=== PATIENT | male | born 1970 ===

== ENCOUNTER 2024-12-18 07:41 | Inpatient (IN) | payer OTHER ==
[~2024-12-18] VITALS: Ht 152.4 cm; Wt 0.9 kg
[2024-12-18 08:36] LABS: HEMATOCRIT 43.1 % (39.0-48.0); HEMOGLOBIN 14.6 g/dL (13-16.00); MEAN CELL VOLUME 90.7 fL (80.0-100.00); MEAN CORPUSCULAR HEMOGLOBIN 30.7 pg (27.00-32.0); MEAN CORPUSCULAR HGB CONC 33.9 g/dl (32.0-36.0); PLATELET COUNT 213 K/uL (150-450); RED BLOOD COUNT 4.76 M/uL (4.00-6.00); RED CELL DISTRIBUTION WIDTH 14.7 % (11.5-14.5)
[2024-12-18 08:43] LABS: PH,URINE 5.5 (5.0-8.0); URINE APPEARANCE Clear; URINE BILIRRUBIN Negative (NEGATIVE); URINE BLOOD Small; URINE COLOR Dark Yellow; URINE GLUCOSE Negative (NEGATIVE); URINE KETONE Trace (NEGATIVE); URINE LEUKOCYTE Negative; URINE NITRATE Negative; URINE PROTEIN 30 (NEGATIVE)
[2024-12-18 08:48] LABS: URINE EPITHELIAL CELLS 5.6 uL (0.0-38.8); URINE RBC 51.7 uL (0.0-20.8); URINE WBC 2.5 uL (0.0-23.2)
[2024-12-18 08:57] LABS: PARTIAL THROMBOPLASTIN TIME 27.2 SECONDS (22.0-34.0); PROTHROMBIN TIME 10.9 SECONDS (9.0-11.5)
[2024-12-18] MEDS ORDERED: MOUNJARO5 MG/0.5 M (09:01)
[2024-12-18] MEDS ORDERED: METFORMIN HCL500 M3 PO (09:02)
[2024-12-18] MEDS ORDERED: SIMVASTATIN80 MG (09:02)
[2024-12-18] MEDS ORDERED: PRILOSEC OTC20 MG PO (09:03)
[2024-12-18] MEDS ORDERED: AMOX-CLAV 875-1 EACH PO (09:04)
[2024-12-18] MEDS ORDERED: PANTOPRAZOLE SO40 MG (09:04)
[2024-12-18 09:08] LABS: URINE BACTERIA 2.4 uL (0.0-1933); URINE CAST 0.14 uL (0.0-1.40)
[2024-12-18] MEDS ORDERED: LOPRESSOR25 MG (09:08)
[2024-12-18 09:09] VITALS: BP 121/80
[2024-12-18 10:13] LABS: BILIRUBIN TOTAL 0.44 mg/dL (0.3-1.2); CALCIUM 9.5 mg/dL (8.5-10.1); CREATININE SERUM 0.73 mg/dL (0.70-1.30); GFR 111.55; GLOBULINA 3.3 G/DL (2.4-3.5); POTASSIUM 5.19 mEq/L (3.5-5.1); TOTAL PROTEIN 7.3 gm/dL (6.4-8.2)
[2024-12-26] MEDS ORDERED: DEXAMETHASONE SODIUM PHOSPHATE 4 MG/ML VIAL ONE (13:00)
[2024-12-26] MEDS ORDERED: CEFAZOLIN SODIUM 1,000 MG VIAL ONE (14:15)
[2024-12-26] MEDS ORDERED: INSULIN LISPRO 1,000 UNIT/10 ML UNITS SUBCUTANEO PRN (16:00)
[2024-12-26] MEDS ORDERED: DEXTROSE 50 % IN WATER 0.5 G/ML VIAL IV PRN (16:00)
[2024-12-26] MEDS ORDERED: ENALAPRILAT DIHYDRATE 1.25 MG/ML VIAL IV PRN (16:15)
[2024-12-26] MEDS ORDERED: ONDANSETRON HCL 2 MG/ML VIAL IV PRN (16:15)
[2024-12-26] MEDS ORDERED: ACETAMINOPHEN 500 MG GEL..CAP PO SCH (17:00)
[2024-12-26] MEDS ORDERED: TRAMADOL HCL 50 MG TABLET PO SCH (17:00)
[2024-12-26] MEDS ORDERED: CYCLOBENZAPRINE HCL 5 MG TABLET PO SCH (17:00)
[2024-12-26] MEDS ORDERED: GABAPENTIN 100 MG CAPSULE PO SCH (17:00)
[2024-12-26] MEDS ORDERED: DIPHENHYDRAMINE HCL 30 MG,LIDOCAINE HCL 30 ML,MAG HYDROX/ALUMINUM HYD/SIMETH 30 ML PO SCH (20:00)
[2024-12-26 20:15] VITALS: BP 128/77; O2SAT 96
[2024-12-26] MEDS ORDERED: PANTOPRAZOLE SODIUM 40 MG/VIAL VIAL IV PUSH SCH (21:00)
[2024-12-27] VITALS: BP 122/76; O2SAT 97
[2024-12-27 08:00] VITALS: BP 145/87; O2SAT 99
[2024-12-27] MEDS ORDERED: DIPHENHYDRAMINE HCL 150 MG,LIDOCAINE HCL 60 ML,MAG HYDROX/ALUMINUM HYD/SIMETH 60 ML PO SCH (09:00)
[2024-12-27] MEDS ORDERED: METOPROLOL TARTRATE 25 MG TABLET PO SCH (09:00)
[2024-12-27] MEDS ORDERED: SIMVASTATIN 20 MG TABLET PO SCH (12:00)
== END 2024-12-27 13:37 | disposition home or self-care (01) | DRG 627 ==
LOC: O/R 12-26 06:32 → SURH 12-26 08:00
PROVIDERS: ADMIT Surgery; ATTEND Surgery
PROC: 0GTG0ZZ Resection of Left Thyroid Gland Lobe, Open Approach (ICD-10-PCS; principal; 2024-12-26 12:30)
DX: E06.3 Autoimmune thyroiditis (principal); E04.1 Nontoxic single thyroid nodule; C73 Malignant neoplasm of thyroid gland

== ENCOUNTER 2025-06-23 07:15 | Inpatient (IN) | payer OTHER ==
[~2025-06-23] VITALS: Ht 165.1 cm; Wt 83.9 kg
[~2025-06-23 07:15] MED LIST: AMOX-CLAV 875-1 EACH PO; LOPRESSOR25 MG; METFORMIN HCL500 M3 PO; MOUNJARO5 MG/0.5 M; PANTOPRAZOLE SO40 MG; PRILOSEC OTC20 MG PO; SIMVASTATIN80 MG
[2025-06-23] MEDS ORDERED: CALTRATE 600 +1 EAC1 PO (08:30)
[2025-06-23] MEDS ORDERED: BENAZEPRIL-HCT1 EACH PO (08:30)
[2025-06-23] MEDS ORDERED: CLARITIN10 M1 PO (08:31)
[2025-06-23] MEDS ORDERED: VARENICLINE TART1 MG PO (08:31)
[2025-06-23 08:34] VITALS: BP 116/69
[2025-06-23 08:39] LABS: BASO % 0.5 % (0.1-1.2); EOS # 0.06 (0.04-0.54); EOS % 1.1 % (0.7-7.0); LYMPH # 1.96 (1.18-3.74); LYMPH % 35.4 % (19.3-53.1); MEAN PLATELET VOLUME 9.80 fl (9.4-12.4); MONO # 0.71 (0.24-0.82); NEUT # 2.78 (1.56-6.13); NEUT % 50.2 % (34.0-71.1); RED CELL DISTRIBUTION WIDTH 14.3 % (11.6-14.4)
[2025-06-23 08:42] LABS: MONO % 12.8 % (4.7-12.5); URINE APPEARANCE Clear; URINE BILIRRUBIN Negative (NEGATIVE); URINE BLOOD Negative; URINE COLOR Yellow; URINE GLUCOSE Negative (NEGATIVE); URINE KETONE Trace (NEGATIVE); URINE LEUKOCYTE Negative; URINE NITRATE Negative; URINE PROTEIN Negative (NEGATIVE); URINE UROBILINOGEN 0.2 E.U./dl
[2025-06-23 08:44] LABS: URINE BACTERIA 5.9 uL (0.0-1933); URINE EPITHELIAL CELLS 3.2 uL (0.0-38.8); URINE RBC 33.8 uL (0.0-20.8); URINE WBC 4.6 uL (0.0-23.2)
[2025-06-23 08:46] LABS: URINE CAST 0.00 uL (0.0-1.40)
[2025-06-23 09:13] LABS: INR 1.07
[2025-06-23 09:24] LABS: ALT/SGPT 25.0 U/L (12-78); AST/SGOT 12.0 U/L (15-37); BILIRUBIN TOTAL 0.61 mg/dL (0.3-1.2); BUN CREA RATIO 19.0 (7.0-25.0); CREATININE SERUM 0.7 mg/dL (0.70-1.30); GFR 117.08; GLOBULINA 3.2 G/DL (2.4-3.5); GLUCOSE FASTING 92.0 mg/dL (65-100); OSMOLALITY SERUM 281.0 MOSM/KG (275-295)
[2025-07-01] MEDS ORDERED: CEFAZOLIN SODIUM 1,000 MG VIAL ONE (12:47)
[2025-07-01] MEDS ORDERED: DEXAMETHASONE SODIUM PHOSPHATE 4 MG/ML VIAL ONE (13:29)
[2025-07-01] MEDS ORDERED: FAMOTIDINE/PF 20 MG/2 ML VIAL IV NR (18:00)
[2025-07-01] MEDS ORDERED: PANTOPRAZOLE SODIUM 40 MG/VIAL VIAL IV NR (18:00)
[2025-07-01 20:30] VITALS: BP 128/79; O2SAT 95
[2025-07-02] MEDS ORDERED: TRAMADOL HCL 50 MG TABLET PO PRN (00:15)
[2025-07-02 00:30] VITALS: BP 115/71; O2SAT 96
[2025-07-02] MEDS ORDERED: ACETAMINOPHEN 500 MG GEL..CAP PO SCH (01:00)
[2025-07-02] MEDS ORDERED: LEVOTHYROXINE SODIUM 125 MCG TABLET PO SCH (06:00)
[2025-07-02] MEDS ORDERED: SIMVASTATIN 20 MG TABLET PO SCH (09:00)
[2025-07-02] MEDS ORDERED: HYDROCHLOROTHIAZIDE 12.5 MG CAPSULE PO SCH (09:00)
[2025-07-02] MEDS ORDERED: LISINOPRIL 5 MG TABLET PO SCH (09:00)
[2025-07-02 09:23] VITALS: BP 127/78; O2SAT 98
[2025-07-02] MEDS ORDERED: CYCLOBENZAPRINE HCL 5 MG TABLET PO SCH (17:00)
== END 2025-07-02 14:15 | disposition home or self-care (01) | DRG 626 ==
LOC: SURH 07-01 07:15 → O/R 07-01 11:00 → SURG 07-01 18:26
PROVIDERS: ADMIT Surgery; ATTEND Surgery
PROC: 00QQ0ZZ Repair Vagus Nerve, Open Approach (ICD-10-PCS; 2025-07-01)
PROC: 0GTH0ZZ Resection of Right Thyroid Gland Lobe, Open Approach (ICD-10-PCS; principal; 2025-07-01 14:30)
DX: E06.3 Autoimmune thyroiditis (principal); G97.49 Accidental puncture and laceration of other nervous system organ or structure during other procedure; E04.2 Nontoxic multinodular goiter